=== PATIENT | female | born 1950 | race Caucasian/White ===

== ENCOUNTER 2018-05-22 11:02 | Emergency (ER) | payer BC ==
[2018-05-22] MEDS: DIPHTH/TET/ACEL PERTUSS (ADULT) 0.5 ML VIAL IM* (12:19)
[2018-05-22] MEDS: LIDOCAINE 1% (MDV) 20 ML INJ SC (13:16)
== END 2018-05-22 13:50 | disposition home or self-care (01) ==
LOC: FTE 11:02
DX: S31.821A Laceration without foreign body of left buttock, initial encounter (principal); R40.2412 Glasgow coma scale score 13-15, at arrival to emergency department; W25.XXXA Contact with sharp glass, initial encounter; Y92.9 Unspecified place or not applicable; Z23 Encounter for immunization
CPT/HCPCS: 12002; 90471; 90715; 99283-25

== ENCOUNTER 2018-05-24 10:43 | Emergency (ER) | payer BC | END 2018-05-24 12:01 | disposition home or self-care (01) | LOC: E/R 10:43 | DX: I10 Essential (primary) hypertension (principal) | CPT/HCPCS: 99283 ==

== ENCOUNTER → 2018-06-18 | Outpatient (CLI) | payer BC ==
[2018-06-18 12:21] LABS: ADD UMIC NO; UR ASCORBIC ACID NEGATIVE (NEGATIVE); UR BILIRUBIN (Dip) NEGATIVE (NEGATIVE); UR BLOOD (Dip) NEGATIVE (NEGATIVE); UR CLARITY CLEAR (CLEAR); UR COLOR YELLOW (YELLOW); UR GLUCOSE (Dip) NEGATIVE (NEGATIVE); UR KETONES (Dip) NEGATIVE (NEGATIVE); UR LEUKOCYTE ESTERASE (Dip) NEGATIVE Leu/ul (NEGATIVE); UR NITRITE (Dip) NEGATIVE (NEGATIVE); UR SPECIFIC GRAVITY (Dip) 1.015 (1.003-1.030); UR TOTAL PROTEIN (Dip) NEGATIVE (NEGATIVE); UR UROBILINOGEN (Dip) NEGATIVE (NEGATIVE)
[2018-06-18 12:44] LABS: HEMOGLOBIN A1C 6.1 % (0-5.9)
== END | disposition home or self-care (01) ==
LOC: EKG 11:57
DX: I10 Essential (primary) hypertension (principal)
CPT/HCPCS: 81003; 83036; 84443; 93005

== ENCOUNTER → 2019-01-01 | Outpatient (CLI) | payer BC | END | disposition home or self-care (01) | LOC: EKG 09:54 | DX: I10 Essential (primary) hypertension (principal) | CPT/HCPCS: 93306 ==